=== PATIENT | male | born 1970 | race African-American/Black ===

== ENCOUNTER 2018-02-07 09:05 | Day surgery (SDC) | payer OTHER ==
[~2018-02-07 09:05] MED LIST: TRYPAN BLUE 0.5 ML SYG IO
[2018-02-07] MEDS ORDERED: PREDNISOLONE ACET 1% 5 ML OPH OPER (09:30)
[2018-02-07] MEDS ORDERED: TOBRAMYCIN 0.3% 5 ML OPH OPER (09:30)
[2018-02-07] MEDS ORDERED: BALANCED SALT SOLN OPH IRRIG 500 ML, EPINEPHrine 0.1 MG, GENTAMICIN 4 MG, VANCOMYCIN 10 MG IRR (09:30)
[2018-02-07] MEDS: TROPICAMIDE 1% 3 ML OPH OPER (09:35)
[2018-02-07] MEDS: PHENYLephrine 2.5% 15 ML OPH OPER (09:35)
[2018-02-07] MEDS: TETRACAINE 0.5% 4 ML OPH OPER (09:35)
[2018-02-07] MEDS: ACETAMINOPHEN 500 MG TAB PO (09:37)
[2018-02-07] MEDS ORDERED: LIDOCAINE 4% (MPF) 5 ML INJ (11:17)
[2018-02-07] MEDS ORDERED: FENTAnyl 50 MCG/ML VIAL (11:29)
[2018-02-07] MEDS ORDERED: PROPOFOL 0 ML (11:29)
[2018-02-07] MEDS ORDERED: MIDAZOLAM 1 MG/ML 2 ML INJ (11:29)
[2018-02-07] MEDS ORDERED: DIPHENHYDRAMINE 50 MG INJ IV (11:30)
[2018-02-07] MEDS ORDERED: FENTAnyl 50 MCG/ML VIAL IV ×3 (11:30)
[2018-02-07] MEDS ORDERED: hydrALAzine 20 MG INJ IV (11:30)
[2018-02-07] MEDS ORDERED: OXYCODONE/ACETAMINOPHEN (5/325) TAB PO ×2 (11:30)
[2018-02-07] MEDS ORDERED: LABETALOL HCL 20MG INJ IV (11:30)
[2018-02-07] MEDS ORDERED: EPHEDrine SULFATE 50 MG/5 ML SYG IV (11:30)
[2018-02-07] MEDS ORDERED: ONDANSETRON 4 MG INJ IV (11:30)
[2018-02-07] MEDS ORDERED: MIDAZOLAM 1 MG/ML 2 ML INJ IV (11:30)
[2018-02-07] MEDS ORDERED: METOCLOPRAMIDE 10 MG INJ IV (11:30)
[2018-02-07] MEDS ORDERED: MEPERIDINE 25 MG INJ IV (11:30)
[2018-02-07] MEDS: LIDOCAINE 4% (MPF) 5 ML INJ INJ (12:48)
[2018-02-07] MEDS: EPINEPHrine 1 MG INJ (12:49)
== END 2018-02-07 14:28 ==
LOC: SDS 09:05
DX: H25.11 Age-related nuclear cataract, right eye (principal); E78.5 Hyperlipidemia, unspecified; E11.9 Type 2 diabetes mellitus without complications
CPT/HCPCS: 66984; 82962

== ENCOUNTER 2018-07-19 07:03 | Day surgery (SDC) | payer OTHER ==
[~2018-07-19 07:03] MED LIST changes: +BALANCED SALT SOLN OPH IRRIG 500 ML, EPINEPHrine 0.1 MG, GENTAMICIN 4 MG, VANCOMYCIN 10 MG IRR; +LIDOCAINE 4% (MPF) 5 ML INJ INJ; +TETRACAINE 0.5% 4 ML OPH OPER; +TROPICAMIDE 1% 3 ML OPH OPER; -TRYPAN BLUE 0.5 ML SYG IO
[2018-07-19] MEDS ORDERED: GENTAMICIN 80 MG INJ (07:39)
[2018-07-19] MEDS ORDERED: EPINEPHrine 1 MG INJ (07:40)
[2018-07-19] MEDS ORDERED: TOBRAMYCIN/DEXAMETH 3.5 GM OPH OINT (07:40)
[2018-07-19] MEDS ORDERED: VANCOMYCIN 1 GM INJ (07:51)
[2018-07-19] MEDS: PHENYLephrine 2.5% 15 ML OPH OPER (08:27)
[2018-07-19] MEDS: TROPICAMIDE 1% 15 ML OPH OPER (08:37)
[2018-07-19] MEDS: LIDOCAINE 4% (MPF) 5 ML INJ INJ (08:50)
[2018-07-19] MEDS ORDERED: HYDROmorphONE 1 MG/5 ML IV SYRINGE IV ×3 (09:00)
[2018-07-19] MEDS ORDERED: ALBUTEROL 0.083% (NEB) 2.5 MG/3 ML AMP HHN (09:00)
[2018-07-19] MEDS ORDERED: MEPERIDINE 25 MG INJ IV (09:00)
[2018-07-19] MEDS ORDERED: ONDANSETRON 4 MG INJ IV (09:00)
[2018-07-19] MEDS ORDERED: METOCLOPRAMIDE 10 MG INJ IV (09:00)
[2018-07-19] MEDS ORDERED: DIPHENHYDRAMINE 50 MG INJ IV (09:00)
[2018-07-19] MEDS ORDERED: FENTAnyl 50 MCG/ML VIAL IV ×2 (09:00)
[2018-07-19] MEDS ORDERED: FENTAnyl 50 MCG/ML VIAL (09:14)
[2018-07-19] MEDS ORDERED: PROPOFOL 20 ML (09:14)
[2018-07-19] MEDS ORDERED: TRYPAN BLUE 0.5 ML SYG IO (09:15)
[2018-07-19] MEDS: TOBRAMYCIN/DEXAMETH 3.5 GM OPH OINT LEFT EYE (09:43)
[2018-07-19] MEDS: EPINEPHrine 1 MG INJ SC (10:00)
== END 2018-07-19 12:45 | disposition home or self-care (01) ==
LOC: SDS 07:03
DX: H26.8 Other specified cataract (principal); E78.00 Pure hypercholesterolemia, unspecified; E11.9 Type 2 diabetes mellitus without complications; E78.5 Hyperlipidemia, unspecified
CPT/HCPCS: 66984; 82962